=== PATIENT | male | born 1950 | race Caucasian/White ===

== ENCOUNTER → 2017-05-24 | Day surgery (SDC) | payer MEDICARE ==
--- NOTE | 2017-05-23 13:19 | PCM.HPANE ---
Patient Data Surgeon Admitting Provider: Attending Provider:Bradly Reynoso MD Primary Care Physician:Tom Mae MD Other Provider:Deon Machado Anesthesia Reason for Visit Polyp Of Colon Ht/WT & BMI Body Mass Index Allergies Coded Allergies: No Known Allergies (Verified , 07/08/06) Past Anesthesia History Anesthesia History: Denies:: Abnormal Airway, Anesthesia Reactions, Difficult Intubation, Fam Anesthesia Reaction, Fam Malignant Hypertherm, Malignant Hyperthermia Diabetes History Hx Diabetes?: No MRSA MRSA: No Medications Reported Medications Tizanidine 2 Mg Tablet2 Mg PO 05/23/17 Verapamil ER 120 Mg [id number] Mg PO DAILY Ref 0 05/23/17 Hydrocod/APAP-Expunged, Do Not Renew! (Vicodin-Expunged Drug, Do Not Renew)1 Tab Tab1 Tab PO PRN Ref 0 10/25/08 Hydrochlorothiazide-Expunged, Do Not Renew! 25 Mg [id number] Mg PO HS Ref 0 10/25/08 Lisinopril-Expunged Drug, Do Not Renew! 20 Mg Xibjhj66 Mg PO HS Ref 0 10/25/08 Pravastatin-Expunged Drug, Do Not Renew! (Pravachol-Expunged Drug, Do Not Renew! )40 Mg [id number] Mg PO HS Ref 0 10/25/08 Amitriptyline-Expunged Drug, Do Not Renew! 25 Mg [id number] Mg PO HS Ref 0 10/25/08 Discontinued Reported Medications Aspirin 81 Mg [id number] Mg PO DAILY Ref 0 05/23/17 Methocarbamol-Expunged Drug, Do Not Renew! 500 Mg [id number] Mg PO PRN Ref 0 10/25/08 FLUoxetine-Expunged Drug, Do Not Renew! 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/2011 IN EMR) Hypertension (HYPERLIPIDEMIA) Denies:: AICD Abdominal Aortic Aneurism Atrial Fibrillation Cardiac Surgery Chest Pain Congestive Heart Failure Coronary Artery Disease Edema Irregular Heartbeat Pacemaker Peripheral Vascular Rheumatic Fever Thrombophlebitis Valvular Heart Disease Hx of Respiratory Problem?: Yes Respiratory History: Positive for:: Dyspnea Denies:: Asthma COPD Chest Surgery Cough Emphysema Hemoptysis Oxygen Administration Pneumonia Pulmonary Embolism Tuberculosis Use of C-PAP Machine Use of Inhalers / NEBS Hx Neurologic Problems?: Yes Neurological History: Positive for:: Headaches (?R/T NECK/BACK PAIN?) Hx of GI Problems?: Yes Gastrointestinal History: Denies:: Cirrhosis Diverticulitis Gall Bladder Disease Gastroesphageal Reflux Gastrointestinal Bleeding Heartburn Hepatitis Hiatal Hernia Liver Disease Rectal Bleeding Hx of Problems?: No Genitourinary History: Denies:: HX of Hemodialysis Kidney Stones Urinary Tract Infection HX of Peritoneal Dialysis: No Male Hx: Denies:: Prostate Problems Scrotal Mass Testicular Surgery Skin History: Denies:: History Skin Disorders? Pressure Ulcers Hx Musculoskeletal Problems?: Yes Musculoskeletal History: Positive for:: Back Injury (CHRONIC NECK/BACK PAIN) Musculoskeletal Trauma (S/P LT SHOULDER RPR X2 RT SHOULDER=CURRENT PROBLEM) Hx of Psycho/Social Problems?: Yes Psycho Social History: Positive for:: Anxiety Hx Depression Hx Surgeries?: Yes (C SPINE SURGERY X3 (1 FUSION),LT SHOULDER RPR X2) Hx Any Other Health Problems?: Yes Other History: Denies:: Cancer Endocrine Disease Hospitalization Thyroid Disease Hx Diabetes: No Hx Alcohol Use: YesHx Substance Use: No Stop/Bang Risk Assessment Category Category 1A: Patient has history of documented sleep apnea, and HAS NOT received any narcotic, sedative or anesthesia administration during this stay. Category 1B: Patient has history of documented sleep apnea, and HAS received any narcotic , sedative or anesthesia administration during this stay Category 2: Patient has SUSPECTED Obstructive Sleep Apnea, and HAS received any narcotic , sedative or anesthesia administration during this stay. Category 3: Patient has SUSPECTED Obstructive Sleep Apnea and HAS NOT received narcotic, sedative or anesthesia administration during this stay. Category 4: Outpatient in Procedural Areas with known sleep apnea or who screen positive for High Risk via the STOP/BANG questionnaire. Exam Exam General Appearance: Alert, Oriented X3, Cooperative, No Acute Distress HEENT/AIRWAY: MP 2, Neck Movement (from), Mouth Opening (wnl) Lungs: Clear to Auscultation Heart: Exam Unremarkable Plan Impression Patient chart reviewed, patient interviewed and anesthestic plan with risks, benefits, and alternatives discussed, and informed consent obtained. ASA Physical Status: ASA2 Mod Systemic Disease Anesthetic Plan: GA Bene/Risks/Altern/Consents: Yes HP Complete Prior to Induction: Yes Khoi Velez MD May 23, 2017 13:19
[~2017-05-24] VITALS: Ht 177.8 cm; Wt 106.6 kg
[~2017-05-24] MED LIST: AMIT25TA26 PO; ASPI-973 PO; HYDR25TA4 PO; Lactated Ringer's 1,000 ML IV ONE; Lactated Ringer's 1,000 ML IV SCH; MetoCLOpramide 5 mg/mL 2 mL Inj IVPUSH PRN; Ondansetron 2 mg/mL 2 mL Inj IVPUSH PRN; PRV40T PO; Propofol 10,000 mCg/mL 20 mL Inj ONE; TIZA2TAB3 PO; VERA120C2 PO; VIC5 PO; ZES20 PO; fentaNYL-PF 50 mCg/mL 2 mL Inj ONE
[2017-05-24 08:24] VITALS: BP 136/77; PULSE 72; RESP 16; O2SAT 97
[2017-05-24 09:13] VITALS: BP 105/56; PULSE 76; RESP 16; O2SAT 95
--- NOTE | 2017-05-24 09:15 | PCM.ENDCOL ---
Colonoscopy Date of Service: May 24, 2017 Physician Bradly Reynoso MD Pre Procedure Diagnosis: screening h/o polyps Post Procedure Dx & Findings: polyp hemmorhoids Procedure Colonoscopy PROCEDURE IN DETAIL: Prep fair Withdrawal time 11 minutes After unremarkable rectal examination the Olympus video colonoscope was inserted patient's anal canal and was advanced to cecum. Landmarks were identified including the ileocecal valve and appendiceal orifice. Scope was withdrawn systematically. Visualized colonic mucosa showed healthy shiny mucosa with normal healthy-appearing vasculature. In the cecum, there was a 1 mm polyp which was removed completely using cold forceps. In the sigmoid colon there was a 1 mm polyp which was also removed with cold forceps. In the rectum retroflexion was done which showed hemorrhoids. Anal canal was inspected carefully on the way out and hemorrhoids noted. Impression Polyp 2 status post complete removal The prep Hemorrhoids Recommendation Repeat colonoscopy in 2 years. He needs to be on 2 weeks of low residual diet with fitzpatrick prep Presedation Assessment Risks and Benefits Informed consent was obtained from the patient after all risks and benefits including but not limited to drug reaction, infection, pain, bleeding, perforation, as well as alternatives were discussed. Patient monitoring Continuous pulse oximetry, cardiac monitoring, blood pressure monitoring, IV access, and oxygen at 2L per nasal cannula. Complications There were no periprocedural complications identified. Post Procedure Plan Post Procedure Recommendations 1. Restrict activities today. 2. Resume normal activities in the morning. 3. Resume medications. 4. Patient informed of normal post procedure side effects as bloating, drowsiness, blood streaking in the stool. 5. average risk CRCS. If colon polyps come back as: -Hyperplastic- can repeat colonoscopy in 10 years -Tubular adenoma- repeat colonoscopy in 5 years -Tubulovillous/villous adenoma- repeat colonoscopy in 3 years -If any dysplasia- return to clinic as soon as possible 6. Please don't hesitate to call me with any questions. Bradly Reynoso MD May 24, 2017 09:15
[2017-05-24 09:37] VITALS: BP 105/56; PULSE 71; RESP 16; O2SAT 100
--- NOTE | 2017-05-24 09:58 | PCM.ANEP1 ---
Post Anesthesia PACU Phase 1 Assessment Vital Signs Vital Signs Date Time Temp Pulse Resp B/P Pulse Ox O2 Delivery O2 Flow Rate FiO2 05/24/17 09:37 71 16 105/56 100 Room Air 05/24/17 09:13 76 16 105/56 95 Room Air 05/24/17 08:24 72 16 136/77 97 Room Air Anesthetic Administered: GA Level of Alertness: Awake, talking MCDERMOTT's with Equal Strength: Yes Pain: No Nausea or Vomiting: No CV Function & Hydration Stable: Yes Airway Device: Oxygen Delivery: Simple Mask Lungs: Normal Air Movement PACU Phase 2 Assessment Complications: No Follow up Care: No Patient Instructions Provided: N/A Khoi Velez MD May 24, 2017 09:57
--- NOTE | 2017-05-30 09:31 | PATH ---
SURGICAL PATHOLOGY Attending Physician:Bradly Reynoso M.D. CASE STATUS: Signed Out PATIENT NAME: FAVIO PATEL PID: [id number] : 1950 DATE COLLECTED:05/24/2017 16:38 SPECIMEN: 1: Colon, Polyp 2: Colon, Polyp CLINICAL HISTORY: 1). CECAL POLYP X1 2). SIGMOID POLYP X1 FINAL DIAGNOSIS: 1.CECAL POLYP: TUBULAR ADENOMA. 2.SIGMOID POLYP: HYPERPLASTIC POLYP. ICD10 D12.0 K63.5 GROSS DESCRIPTION: Received two formalin-filled containers, both labeled with the patient' s name: 1. In a container labeled "cecal polyp", the specimen consists of a 0.3 x 0.2 x 0.2 cm portion of tissue, which is entirely submitted in cassette 1A. 2. In a container labeled "sigmoid polyp", the specimen consists of a 0.2 x 0.2 x 0.1 cm portion of tissue, which is entirely submitted in cassette 2A. ([id number]) MICRO DESCRIPTION: See diagnosis. ICD-9 CODES: CPT CODES: 1: 33575 2: 61657 Electronically Signed Out Joyce Bess MD [facility] Pathology [facility] [address], [place] [address] Technical component performed at [facility], [facility] [address], [place], [address]
== END | disposition home or self-care (01) ==
LOC: END 00:27
PROVIDERS: ATTEND Internal Medicine
DX: Z12.11 Encounter for screening for malignant neoplasm of colon (principal); Z86.010 Personal history of colon polyps; D12.0 Benign neoplasm of cecum; K63.5 Polyp of colon; I10 Essential (primary) hypertension; E78.5 Hyperlipidemia, unspecified; G47.33 Obstructive sleep apnea (adult) (pediatric); M54.2 Cervicalgia; M54.5 Low back pain; F32.9 Major depressive disorder, single episode, unspecified; R06.00 Dyspnea, unspecified; N40.0 Benign prostatic hyperplasia without lower urinary tract symptoms; Z85.828 Personal history of other malignant neoplasm of skin; Z79.82 Long term (current) use of aspirin; Z87.891 Personal history of nicotine dependence; K64.9 Unspecified hemorrhoids
CPT/HCPCS: 45380; J2250; J3010; J7120